=== PATIENT | female | born 1960 | race Caucasian/White ===

== ENCOUNTER 2016-10-16 21:01 | Emergency (ER) | payer OTHER ==
[~2016-10-16] VITALS: Ht 170.2 cm; Wt 135.2 kg
[~2016-10-16 21:01] MED LIST: AZITHROMYCIN250 M1 PO; CEFDINIR300 M1 PO; FER300 PO; L40 PO; LAC PO; LEVAQUIN750 MG; LORAZEPAM1 MG; THERAGRAN-M1 TA4 PO; VITC PO; ZES10 PO; ZOF4; ZYL100 PO
[2016-10-16 22:49] LABS: PLATELET COUNT 315 x10^3mcL (130-400)
[2016-10-16 22:56] LABS: RED CELL DISTRIBUTION WIDTH 34.2 % (11.5-14.5)
[2016-10-16 23:13] LABS: CALCIUM 8.5 mg/dL (8.5-10.1); CARBON DIOXIDE 27.5 mmol/L (21-32); CHLORIDE SERUM 107 mmol/L (98-107); CREATININE SERUM 0.9 mg/dL (0.6-1.0); GFR1 > 60 mL/min; GLUCOSE SERUM 114 mg/dL (74-106); POTASSIUM SERUM 3.8 mmol/L (3.5-5.1); SODIUM SERUM 141 mmol/L (136-145)
[2016-10-16 23:16] LABS: BAND NEUTROPHIL 2 % (0-10); MONOCYTE 2 % (0-7); SEGMENTED NEUTROPHILS 70 % (37-75); rbc morphology (normal/abnorm) ABNORMAL (NORMAL)
[2016-10-16 23:17] LABS: PLATELET MORPHOLOGY PLATELETS NORMAL
[2016-10-16 23:18] LABS: ALKALINE PHOSPHATASE 141 U/L (46-116); ALT/SGPT 26 U/L (14-59); AMYLASE 48 U/L (25-115); AST/SGOT 21 U/L (15-37); BILIRUBIN TOTAL 0.6 mg/dL (0.20-1.00); LIPASE 166 IU/L (73-393); TOTAL PROTEIN, SERUM 7.5 g/dL (6.4-8.2)
[2016-10-16 23:20] LABS: ALBUMIN 3.3 g/dL (3.4-5.0)
[2016-10-16 23:55] VITALS: BP 132/82
== END 2016-10-16 23:55 | disposition home or self-care (01) ==
LOC: ED 21:01
PROVIDERS: Emergency Medicine
DX: K80.50 Calculus of bile duct without cholangitis or cholecystitis without obstruction (principal); M10.9 Gout, unspecified; I10 Essential (primary) hypertension; Z88.1 Allergy status to other antibiotic agents
CPT/HCPCS: J1885

== ENCOUNTER 2016-10-17 02:21 | Inpatient (IN) | payer OTHER ==
[~2016-10-17] VITALS: Ht 170.2 cm; Wt 135.2 kg
[2016-10-17 04:42] VITALS: BP 126/56
[2016-10-17 04:59] LABS: microscopic required? NO
[2016-10-17 05:11] LABS: T3 TOTAL 1.31 ng/mL; UA SPECIFIC GRAVITY >=1.030 (1.005-1.035); urine erythrocyte NEGATIVE (NEGATIVE)
[2016-10-17 05:12] LABS: AMYLASE 52 U/L (25-115); CALCIUM 8.2 mg/dL (8.5-10.1); CARBON DIOXIDE 26.7 mmol/L (21-32); CHLORIDE SERUM 108 mmol/L (98-107); CHOLESTEROL 140 mg/dL (<200); CHOLESTEROL/HDL RATIO 2.9; CREATININE SERUM 0.9 mg/dL (0.6-1.0); GFR1 > 60 mL/min; GLUCOSE SERUM 153 mg/dL (74-106); HDL CHOLESTEROL 48 mg/dL (40-60); LIPASE 175 IU/L (73-393); PHOSPHOROUS 4.3 mg/dL (2.5-4.9); POTASSIUM SERUM 3.8 mmol/L (3.5-5.1); SODIUM SERUM 142 mmol/L (136-145); TRIGLYCERIDES 69 mg/dL (<150)
[2016-10-17 05:18] LABS: AMPHETAMINE QUAL UR NONE DETECTED (NEG <=1000); FREE T4 1.18 ng/dL (0.76-1.46); FREE THYROXINE INDEX 2.4 ug/dL (1.4-4.5); T4(THYROXINE) 8.5 ug/dL (4.7-13.3)
[2016-10-17 09:45] VITALS: BP 107/67
[2016-10-17 13:50] VITALS: BP 98/62
[2016-10-17 17:53] VITALS: BP 98/62
[2016-10-17 21:24] VITALS: BP 126/57
[2016-10-18 06:18] LABS: PLATELET COUNT 262 x10^3mcL (130-400)
[2016-10-18 06:22] LABS: CALCIUM 7.7 mg/dL (8.5-10.1); CARBON DIOXIDE 23.5 mmol/L (21-32); CHLORIDE SERUM 111 mmol/L (98-107); CREATININE SERUM 0.7 mg/dL (0.6-1.0); GFR1 > 60 mL/min; GLUCOSE SERUM 101 mg/dL (74-106); MAGNESIUM 1.8 mg/dL (1.8-2.4); PHOSPHOROUS 3.8 mg/dL (2.5-4.9); SODIUM SERUM 143 mmol/L (136-145)
[2016-10-18 06:31] VITALS: BP 104/53
[2016-10-18 06:39] LABS: BASOPHIL % 0 % (0-2); RED CELL DISTRIBUTION WIDTH 33.8 % (11.5-14.5)
[2016-10-18 06:40] LABS: rbc morphology (normal/abnorm) ABNORMAL (NORMAL)
[2016-10-18 09:00] VITALS: BP 115/67
[2016-10-18 17:50] VITALS: BP 122/72
[2016-10-18 21:25] VITALS: BP 113/59
[2016-10-19 05:47] VITALS: BP 130/72
[2016-10-19 06:21] LABS: CALCIUM 7.8 mg/dL (8.5-10.1); CARBON DIOXIDE 25.5 mmol/L (21-32); CHLORIDE SERUM 112 mmol/L (98-107); CREATININE SERUM 0.8 mg/dL (0.6-1.0); GFR1 > 60 mL/min; GLUCOSE SERUM 95 mg/dL (74-106); POTASSIUM SERUM 3.7 mmol/L (3.5-5.1); SODIUM SERUM 144 mmol/L (136-145)
[2016-10-19 06:34] LABS: BASOPHIL % 0.8 % (0-2); PLATELET COUNT 196 x10^3mcL (130-400)
[2016-10-19 07:09] LABS: RED CELL DISTRIBUTION WIDTH 30.4 % (11.5-14.5)
[2016-10-19 09:17] VITALS: BP 120/58
[2016-10-19 15:37] LABS: TOTAL IRON BINDING CAPACITY 372 ug/dL (250-450)
[2016-10-19 15:41] LABS: IRON 26 ug/dL (50-170)
[2016-10-19 16:00] LABS: RED BLOOD CELLS 4.24 M/mm3 (4.10-5.10)
== END 2016-10-19 16:27 | disposition left against medical advice (07) ==
LOC: ED 02:21 → DU 03:42 → MU 03:42 → DU 04:15 → MU 20:10
PROVIDERS: ADMIT Family Medicine
DX: K80.20 Calculus of gallbladder without cholecystitis without obstruction (principal); E43 Unspecified severe protein-calorie malnutrition; E87.8 Other disorders of electrolyte and fluid balance, not elsewhere classified; I27.2 Other secondary pulmonary hypertension; K76.0 Fatty (change of) liver, not elsewhere classified; Z68.42 Body mass index [BMI] 45.0-49.9, adult; I10 Essential (primary) hypertension; M10.9 Gout, unspecified; D50.9 Iron deficiency anemia, unspecified; E03.9 Hypothyroidism, unspecified; E66.01 Morbid (severe) obesity due to excess calories; Z79.899 Other long term (current) drug therapy; Z82.3 Family history of stroke; Z80.3 Family history of malignant neoplasm of breast; Z82.49 Family history of ischemic heart disease and other diseases of the circulatory system; Z72.89 Other problems related to lifestyle
CPT/HCPCS: 78226; 80307; 83880; 84439; A9537; C9113; J1170; J1885; J2270; J2405; J7030; Q0092

== ENCOUNTER 2016-10-24 00:39 | Emergency (ER) | payer OTHER ==
[2016-10-24 03:00] LABS: BASOPHIL % 0.1 % (0-2); CALCIUM 8.5 mg/dL (8.5-10.1); CARBON DIOXIDE 29.6 mmol/L (21-32); CHLORIDE SERUM 109 mmol/L (98-107); CREATININE SERUM 0.8 mg/dL (0.6-1.0); GFR1 > 60 mL/min; GLUCOSE SERUM 98 mg/dL (74-106); PLATELET COUNT 323 x10^3mcL (130-400); POTASSIUM SERUM 3.2 mmol/L (3.5-5.1); SODIUM SERUM 146 mmol/L (136-145)
[2016-10-24 03:06] LABS: ALBUMIN 3.3 g/dL (3.4-5.0); ALKALINE PHOSPHATASE 120 U/L (46-116); ALT/SGPT 19 U/L (14-59); AMYLASE 38 U/L (25-115); AST/SGOT 21 U/L (15-37); BILIRUBIN TOTAL 0.49 mg/dL (0.20-1.00); LIPASE 95 IU/L (73-393); TOTAL PROTEIN, SERUM 7.3 g/dL (6.4-8.2)
[2016-10-24 03:11] LABS: RED CELL DISTRIBUTION WIDTH 32.9 % (11.5-14.5)
[2016-10-24 03:58] VITALS: BP 111/48
== END 2016-10-24 03:59 | disposition home or self-care (01) ==
LOC: ED 00:39
PROVIDERS: Emergency Medicine
DX: K80.50 Calculus of bile duct without cholangitis or cholecystitis without obstruction (principal); I10 Essential (primary) hypertension; D64.9 Anemia, unspecified; Z79.899 Other long term (current) drug therapy; Z87.01 Personal history of pneumonia (recurrent); Z87.19 Personal history of other diseases of the digestive system
CPT/HCPCS: J1170; Q0162

== ENCOUNTER 2016-10-25 18:12 | Emergency (ER) | payer OTHER ==
[2016-10-25 23:51] VITALS: BP 125/65
== END 2016-10-25 23:51 | disposition home or self-care (01) ==
LOC: ED 18:12
DX: K80.50 Calculus of bile duct without cholangitis or cholecystitis without obstruction (principal); E66.01 Morbid (severe) obesity due to excess calories
CPT/HCPCS: J1170; J1885; Q0162

== ENCOUNTER 2016-10-26 06:23 | Emergency (ER) | payer OTHER ==
[2016-10-26 07:24] LABS: PLATELET COUNT 267 x10^3mcL (130-400)
[2016-10-26 07:35] LABS: CALCIUM 8.4 mg/dL (8.5-10.1); CARBON DIOXIDE 29.2 mmol/L (21-32); CHLORIDE SERUM 108 mmol/L (98-107); CREATININE SERUM 0.7 mg/dL (0.6-1.0); GFR1 > 60 mL/min; GLUCOSE SERUM 112 mg/dL (74-106); POTASSIUM SERUM 4.2 mmol/L (3.5-5.1); SODIUM SERUM 144 mmol/L (136-145)
[2016-10-26 07:40] LABS: ALBUMIN 3.2 g/dL (3.4-5.0); ALKALINE PHOSPHATASE 120 U/L (46-116); ALT/SGPT 17 U/L (14-59); AMYLASE 47 U/L (25-115); AST/SGOT 18 U/L (15-37); BILIRUBIN TOTAL 0.38 mg/dL (0.20-1.00); LIPASE 110 IU/L (73-393); TOTAL PROTEIN, SERUM 7.3 g/dL (6.4-8.2)
[2016-10-26 07:46] LABS: BASOPHIL % 6.8 % (0-2); RED CELL DISTRIBUTION WIDTH 32.3 % (11.5-14.5)
[2016-10-26 07:47] LABS: AMPHETAMINE QUAL UR NONE DETECTED (NEG <=1000)
[2016-10-26 08:13] LABS: target cell (codocyte) 1+; tear drop cell (dacryocyte) 1+
[2016-10-26 08:14] LABS: rbc morphology (normal/abnorm) ABNORMAL (NORMAL)
[2016-10-26 10:09] VITALS: BP 137/97
== END 2016-10-26 10:09 | disposition home or self-care (01) ==
LOC: ED 06:23
PROVIDERS: Emergency Medicine
DX: K80.21 Calculus of gallbladder without cholecystitis with obstruction (principal); R19.7 Diarrhea, unspecified; I10 Essential (primary) hypertension; E66.9 Obesity, unspecified
CPT/HCPCS: 80307; 83880; J2270; J2405; J3490; J7030; Q0092

== ENCOUNTER 2016-10-27 16:04 | Emergency (ER) | payer OTHER ==
[2016-10-27 16:52] LABS: CALCIUM 8.5 mg/dL (8.5-10.1); CARBON DIOXIDE 31.6 mmol/L (21-32); CHLORIDE SERUM 109 mmol/L (98-107); CREATININE SERUM 0.8 mg/dL (0.6-1.0); GFR1 > 60 mL/min; GLUCOSE SERUM 96 mg/dL (74-106); POTASSIUM SERUM 3.8 mmol/L (3.5-5.1); SODIUM SERUM 145 mmol/L (136-145)
[2016-10-27 16:56] LABS: ALBUMIN 3.2 g/dL (3.4-5.0); ALKALINE PHOSPHATASE 121 U/L (46-116); ALT/SGPT 18 U/L (14-59); AMYLASE 51 U/L (25-115); AST/SGOT 19 U/L (15-37); BILIRUBIN TOTAL 0.35 mg/dL (0.20-1.00); LIPASE 156 IU/L (73-393); TOTAL PROTEIN, SERUM 7.4 g/dL (6.4-8.2)
[2016-10-27 16:58] LABS: PLATELET COUNT 294 x10^3mcL (130-400)
[2016-10-27 16:59] LABS: BASOPHIL % 0 % (0-2); RED CELL DISTRIBUTION WIDTH 32.5 % (11.5-14.5)
[2016-10-27 17:39] LABS: rbc morphology (normal/abnorm) ABNORMAL (NORMAL)
[2016-10-27 18:03] VITALS: BP 143/90
== END 2016-10-27 18:03 | disposition home or self-care (01) ==
LOC: ED 16:04
PROVIDERS: Emergency Medicine
DX: K80.70 Calculus of gallbladder and bile duct without cholecystitis without obstruction (principal); I10 Essential (primary) hypertension; M10.9 Gout, unspecified; J18.9 Pneumonia, unspecified organism; Z79.899 Other long term (current) drug therapy
CPT/HCPCS: J1170; J1885; Q0162

== ENCOUNTER 2016-10-31 01:43 | Emergency (ER) | payer OTHER ==
[2016-10-31 04:38] VITALS: BP 157/95
== END 2016-10-31 04:38 | disposition home or self-care (01) ==
LOC: ED 01:43
DX: K80.20 Calculus of gallbladder without cholecystitis without obstruction (principal); R60.0 Localized edema; E66.9 Obesity, unspecified; Z88.1 Allergy status to other antibiotic agents; Z88.6 Allergy status to analgesic agent; Z79.899 Other long term (current) drug therapy
CPT/HCPCS: J1885; Q0162

== ENCOUNTER 2016-11-06 20:39 | Inpatient (IN) | payer OTHER ==
[~2016-11-06] VITALS: Ht 170.2 cm; Wt 97.5 kg
--- NOTE | 2016-11-06 21:15 | NUR ---
PT IN ED FOR ABD PAIN IN UPPER QUADRANTS BILAT, DENIES N/V/D. PT ALSO C/O HEADACHE AND REPORTS "I FEEL LIKE MY HEAD IS GOING TO EXPLODE AND BLOOD IS GOING TO GO EVERYWHERE." PT ALSO STATED "I FEEL LIKE MY EYES ARE GOING TO POP OUT." PER PT'S SISTER, PAIN ONSET BEGAN 1 HOUR BEFORE ED ARRIVAL. PT IS AWAKE AND ALERT; REPORTS PAIN 10/10. RESP ARE EVEN AND UNLABORED. CONNECTED TO FULL CM, O2 2L VIA NC INITIATED. WILL CONTINUE TO MONITOR
--- NOTE | 2016-11-06 21:41 | NUR ---
PT REQUESTED TO VOID; PROVIDED WITH BEDPAN
--- NOTE | 2016-11-06 21:55 | NUR ---
PT MEDICATED PER MD ORDER; PT TOLERATED WELL. RESP EVEN AND UNLABORED, NAD NOTED AT THIS TIME
[2016-11-06 21:56] LABS: microscopic required? NO
[2016-11-06 22:01] LABS: UA SPECIFIC GRAVITY 1.015 (1.005-1.035); urine erythrocyte NEGATIVE (NEGATIVE)
[2016-11-06 22:07] LABS: PLATELET COUNT 273 x10^3mcL (130-400)
[2016-11-06 22:11] LABS: CALCIUM 8.7 mg/dL (8.5-10.1); CARBON DIOXIDE 28.3 mmol/L (21-32); CHLORIDE SERUM 107 mmol/L (98-107); CREATININE SERUM 0.9 mg/dL (0.6-1.0); GFR1 > 60 mL/min; GLUCOSE SERUM 94 mg/dL (74-106); POTASSIUM SERUM 3.6 mmol/L (3.5-5.1); RED CELL DISTRIBUTION WIDTH 29.6 % (11.5-14.5); SODIUM SERUM 141 mmol/L (136-145)
[2016-11-06 22:15] LABS: ALBUMIN 3.4 g/dL (3.4-5.0); ALKALINE PHOSPHATASE 94 U/L (46-116); ALT/SGPT 18 U/L (14-59); AMYLASE 39 U/L (25-115); AST/SGOT 19 U/L (15-37); BILIRUBIN TOTAL 0.38 mg/dL (0.20-1.00); LIPASE 73 IU/L (73-393); TOTAL PROTEIN, SERUM 7.3 g/dL (6.4-8.2)
[2016-11-06 22:19] LABS: BAND NEUTROPHIL 2 % (0-10); BASOPHIL 0 % (0-2); MONOCYTE 4 % (0-7); SEGMENTED NEUTROPHILS 87 % (37-75); rbc morphology (normal/abnorm) ABNORMAL (NORMAL)
--- NOTE | 2016-11-06 22:29 | NUR ---
ICE PACKS PLACED IN PILLOW CASES AND PLACED UNDER PTS AXILLA BILAT
--- NOTE | 2016-11-07 00:06 | NUR ---
PT IN BED; EYES CLOSED BUT EASILY AROUSABLE. RESP EVEN AND UNLABORED, NAD NOTED
--- NOTE | 2016-11-07 00:21 | NUR ---
PT TO CT VIA [facility]
--- NOTE | 2016-11-07 00:30 | NUR ---
PT OKAY PER TO DRINK WATER
--- NOTE | 2016-11-07 01:39 | NUR ---
PT IN BED, RESP EVEN AND UNLABORED. PT GIVEN MORE WATER; OKAY PER MD. PT REPOSITIONED TO POSITION OF COMFORT. NAD NOTED
--- NOTE | 2016-11-07 02:34 | NUR ---
PT GIVEN WATER TO DRINK; RESP EVEN AND UNLABORED, NAD NOTED
[2016-11-07] MEDS ORDERED: NORCO1 TA2 PO (02:49)
[2016-11-07] MEDS ORDERED: FUROSEMIDE40 MG PO (02:54)
[2016-11-07] MEDS ORDERED: ALLOPURINOL100 MG PO (02:54)
[2016-11-07] MEDS ORDERED: THEREMS1 TA1 PO (02:55)
[2016-11-07] MEDS ORDERED: LISINOPRIL10 MG PO (02:55)
[2016-11-07] MEDS ORDERED: OMEPRAZOLE40 M1 PO (02:56)
[2016-11-07] MEDS ORDERED: FERROUS SULFAT325 M2 PO (02:56)
--- NOTE | 2016-11-07 02:58 | NUR ---
REPORT GIVEN TO ADELA TO ASSUME CARE OF PT
--- NOTE | 2016-11-07 03:23 | NUR ---
ANTIBIOTICS AND 2L NS BOLUS ADMINISTERED PER MD ORDER; PT AAO4, RESP EVEN AND UNLABORED, NAD NOTED
--- NOTE | 2016-11-07 04:00 | NUR ---
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 FEBRILE IN ER 101,3 RECHECKED TEMP-98.2 AFTER MEDS AND COOLING MEASURES GIVEN IN ER. 2L NS BOLUS IN ER. IV TO LAC ON BOLUS INFUSING THIS TIME. WITH ADMISSION ORDERS FROM DR SALAZAR AND TO CARRY OUT. KEPT IN COMFORT, ORIENTED TO ROOM AND DEVICES. WILL CONTINUE TO MONITOR. CALL LIGHT WITHIN REACH.
[2016-11-07 04:05] VITALS: BP 86/48
[2016-11-07 04:15] LABS: T3 TOTAL 1.21 ng/mL
[2016-11-07 04:17] LABS: FREE T4 1.23 ng/dL (0.76-1.46); FREE THYROXINE INDEX 2.6 ug/dL (1.4-4.5); T4(THYROXINE) 9.1 ug/dL (4.7-13.3)
[2016-11-07 04:19] LABS: CHOLESTEROL/HDL RATIO 2.1
--- NOTE | 2016-11-07 04:49 | NUR ---
PHOTO OF JACLYN.LEG TAKEN, ADMISSION ORDERS CARRIED OUT. PATIENT RESTING THIS TIME. WILL CONTINUE TO MONITOR.
[2016-11-07 05:50] VITALS: BP 106/67
--- NOTE | 2016-11-07 07:40 | NUR ---
REASSESSMENT DONE. PT COOPERATES WITH CARE. C/O HEADACHE, WILL MEDICTATE PER EMAR. +3 EDEMA TO BLE. ON 2LNC. IV INFUSING WELL TO LAC NS AT 110ML/HR. BED IN LOW POSITION, CALL LIGHT WITHIN REACH. WILL CONTINUE TO MONITOR.
--- NOTE | 2016-11-07 09:40 | NUR ---
PT C/O HEADACHE, MEDICATED PER EMAR. PT TOLERATED WELL. CALL LIGHT WITHIN REACH. WILL CONTINUE TO MONITOR.
[2016-11-07 10:15] VITALS: BP 101/54
--- NOTE | 2016-11-07 11:20 | NUR ---
PT C/O BACK PAIN /10 AND HEADACHE. MEDICATED PER EMAR. PT TOLERATED WELL. CALL LIGHT WITHIN REACH. WILL CONTINUE TO MONITOR.
[2016-11-07 14:40] VITALS: BP 102/54
[2016-11-07 17:10] VITALS: BP 117/89
--- NOTE | 2016-11-07 17:45 | NUR ---
PASSED AFTERNOON MEDS. PT TOLERATED WELL. PT AMBULATED HALLWAYS. PT STATES HEADACHE HAS SUBSIDED. BACK PAIN PRESENT 2/. SLIGHT DECREASE IN BLE SWELLING. CALL LIGHT WITHIN REACH.
--- NOTE | 2016-11-07 20:08 | NUR ---
PT RECIEVED OBESE AAO REG RESP NO SOB,V/S STABLE,MADE COMFORTABLE IN BED,IV INFUSING WELL WITH THE SITE PATENT AND INTACT,ABDO IS SOFT OBESE WITH ACTIVE BOWEL SOUNDS,PT WITH SWOLLEN TO JACLYN LOWER EXTRE BUT MORE REDNESS TO THE LLE PALPABLE PULSES AND WITH MOVEMENTS INTACT,CALL LIGHT MADE CLOSE TO THE PATIENT AND WILL CONTINUE TO MONITOR.
[2016-11-07 20:28] VITALS: BP 100/47
[2016-11-08 06:14] VITALS: BP 116/50
[2016-11-08 06:24] LABS: CALCIUM 8.2 mg/dL (8.5-10.1); CARBON DIOXIDE 29.2 mmol/L (21-32); CHLORIDE SERUM 106 mmol/L (98-107); CREATININE SERUM 0.9 mg/dL (0.6-1.0); GFR1 > 60 mL/min; GLUCOSE SERUM 130 mg/dL (74-106); PHOSPHOROUS 4.3 mg/dL (2.5-4.9); POTASSIUM SERUM 3.7 mmol/L (3.5-5.1); SODIUM SERUM 142 mmol/L (136-145)
[2016-11-08 06:25] LABS: ALBUMIN 2.8 g/dL (3.4-5.0)
--- NOTE | 2016-11-08 06:25 | NUR ---
PT HAD A RESTING NIGHT AND NO CHANGE IN CONDITION,PT NPO THIS TIME,AWARE AND COOPERATIVE,PT C/O OF PAIN PAIN ARCHING IN NATURE AT THE SCALE OF 7/10 AND REQUESTING IV PAIN MEDS,PT WAS MEDICATED WITH MEDS ORDER AND WILL CONTINUE TO MONITOR.
[2016-11-08 07:22] LABS: BASOPHIL % 0.1 % (0-2); PLATELET COUNT 249 x10^3mcL (130-400)
[2016-11-08 09:33] LABS: rbc morphology (normal/abnorm) ABNORMAL (NORMAL)
[2016-11-08 09:34] LABS: target cell (codocyte) 1+
[2016-11-08 09:43] VITALS: BP 110/42
--- NOTE | 2016-11-08 11:47 | NUR ---
PT IS A/O X4 ABLE TO MAKE NEEDS KNOWN. MEDSURG PT. PULSES EQUAL BILATERAL EDEMA TO BLE. LUNGS CTA. BOWEL SOUNDS ACTIVE IN ALL 4 QUADRANTS, NPO. BRP WITH ASSIST, MILD GENERALIZED WEAKNESS. SWELLING AND REDNESS TO BLE. PT C/O PAIN 02/05. IV THE THE LAC PATENT AND INFUSING. CALL LIGHT IN REACH, BED IN LOW POSITION, NON SKID FOOTWEAR ON FEET. PT IS CALM AND COOPERATIVE WITH CARE. WILL CONTINUE TO MONITOR.
--- NOTE | 2016-11-08 12:01 | NUR ---
PT IN TO WORK WITH PATIENT.
--- NOTE | 2016-11-08 12:30 | NUR ---
DR DOUGHERTY PAGED
--- NOTE | 2016-11-08 12:44 | NUR ---
PT UP WALKING AROUND THE ROOM, NO C/O PAIN WILL CONTINUE TO MONITOR.
--- NOTE | 2016-11-08 13:12 | NUR ---
DR DOUGHERTY PAGED
--- NOTE | 2016-11-08 13:38 | NUR ---
P.T. NOTES Pt CLEARED PER NURSING FOR PT EVAL. CONTACT ISOLATION PRECAUTIONS OBSERVED. Pt LIVES AT HOME W/FAMILY AND REPORTS MOSTLY IND WITH ADLs AT HOME. REPORTS THAT SHE USES HER DAD'S [facility] FOR AMBUL[facility]. Pt WAS ADMITTED TO HOSPITAL S/P FEVER, ABD PAIN AND BLE CELLULITIS. S: Pt PRESENTS AWAKE, ALERT AND AGREEABLE FOR PT EVAL. C/O 2/10 BACK PAIN AT THIS TIME. PLEASANT AND TALKATIVE. NO DISTRESS NOTED. O: PLEASE SEE EVAL FOR DETAILS. BED MOB: IND. TRANSFERS: CGA. GT WITH FWW: CGA/MIN A FOR APPROX 45 FT. Pt EDU ON SAFETY, FALL PREVENTION, FWW USE, POSTURAL EDU PROVIDED W/GOOD LEARNING EXPRESSED. SAFELY ASSISTED BTB WITH ALL LINES INTACT, SEATED EOB W/TRAY IN FRONT, CALL LIGHT IN REACH. Pt COOPERATIVE AND VERY APPRECIATIVE OF PT CARE. A: Pt TOLERATED PT WELL. FALL RISK D/T DECLINE IN FUNCTION, MORBID OBESITY. WADDLING GT WITH WBOS, FATIGUES QUICKLY W/LIMITED ENDURANCE. Pt DEMO'S ANTERIOR FLEXED POSTURE W/VC TO CORRECT IN SITTING, STANDING AND DURING GT. Pt WILL BENEFIT FROM FWW FOR INCREASED GAIT STABILITY WELL PT POST ACUTE STAY FOR BALANCE TRAINING/FALL PREVENTION AND GENERALIZED STRENGTHENING. P: POC REVIEWED W/DANCE COACH. PLEASE SEE Pt ONCE DAILY, 6X/WK,1WEEK. EVAL 40' [id number]; [id number]; TUG 13 SEC [id number] Pt INSTRUCTED W/SEATED HEP: HIP FLEXION MARCHES, ANKLE PUMPS/CIRCLES, LAQ, SCAPULAR RETRACTION W/POSTURAL CORRECTION EX. PERFORMED ALL TO TOLERANCE W/GOOD RETURN DEMO'D. EX 9' [phone]
--- NOTE | 2016-11-08 14:02 | NUR ---
CALLED OIL TREATER PHONE SPOKE TO DR DOWELL INFORMED HIM THAT THE PT WANTED AN UPDATE ON WHEN SHE WOULD BE LEAVING.. DR DOWELL STATED THAT HE WOULLD SEND DR JUDD IN TO SEE PT AND GIVE HER AN UPDATE.
--- NOTE | 2016-11-08 15:12 | NUR ---
PT RESTING IN BED NO C/O SOB OR CP AT THIS TIME. WILL CONTINUE TO MONITOR.
[2016-11-08] MEDS ORDERED: LEVAQUIN750 MG PO (15:48)
[2016-11-08] MEDS ORDERED: LAC PO (15:48)
[2016-11-08 16:06] VITALS: BP 110/42
--- NOTE | 2016-11-08 16:48 | NUR ---
DISCHARGE INSTRUCTIONS GIVEN TO PT, PT INFORMED REGARDING HER FOLLOW UP APPT FOR THE 4TH, PT VERBALIZED UNDERSTANDING. IV DC'D INTACT. ALL BELONGINGS TAKEN WITH PT. SCRIPTS IN HAND. BANDS CUT OFF. PT ACCOMPANIED OFF THE FLOOR BY NURSE.
== END 2016-11-08 16:45 | disposition home or self-care (01) | DRG 720 ==
LOC: ED 20:39 → DU 11-07 02:30 → MU 11-07 02:30 → DU 11-07 03:35 → MU 11-07 09:42
PROVIDERS: Emergency Medicine; ADMIT Family Medicine
DX: A41.9 Sepsis, unspecified organism (principal); K80.10 Calculus of gallbladder with chronic cholecystitis without obstruction; I16.0 Hypertensive urgency; D50.9 Iron deficiency anemia, unspecified; K21.9 Gastro-esophageal reflux disease without esophagitis; M10.9 Gout, unspecified; F41.9 Anxiety disorder, unspecified; Z68.33 Body mass index [BMI] 33.0-33.9, adult; K64.9 Unspecified hemorrhoids; I87.2 Venous insufficiency (chronic) (peripheral); K80.70 Calculus of gallbladder and bile duct without cholecystitis without obstruction; Z82.3 Family history of stroke; Z80.3 Family history of malignant neoplasm of breast; Z82.49 Family history of ischemic heart disease and other diseases of the circulatory system
CPT/HCPCS: 83880; 84439; 97110-GP; J0696; J1170; J2270; J2405; J7030; Q0092

== ENCOUNTER 2016-11-09 21:18 | Emergency (ER) | payer OTHER ==
[~2016-11-09 21:18] MED LIST changes: +ALLOPURINOL100 MG PO; +FERROUS SULFAT325 M2 PO; +FUROSEMIDE40 MG PO; +LEVAQUIN750 MG PO; +LISINOPRIL10 MG PO; +NORCO1 TA2 PO; +OMEPRAZOLE40 M1 PO; +THEREMS1 TA1 PO
[2016-11-09 22:13] LABS: BASOPHIL % 0.2 % (0-2); PLATELET COUNT 277 x10^3mcL (130-400)
[2016-11-09 22:16] LABS: CALCIUM 8.6 mg/dL (8.5-10.1); CARBON DIOXIDE 29.3 mmol/L (21-32); CHLORIDE SERUM 107 mmol/L (98-107); CREATININE SERUM 0.9 mg/dL (0.6-1.0); GFR1 > 60 mL/min; GLUCOSE SERUM 98 mg/dL (74-106); POTASSIUM SERUM 3.5 mmol/L (3.5-5.1); SODIUM SERUM 145 mmol/L (136-145)
[2016-11-09 22:20] LABS: ALBUMIN 3.1 g/dL (3.4-5.0); ALKALINE PHOSPHATASE 101 U/L (46-116); ALT/SGPT 19 U/L (14-59); AST/SGOT 19 U/L (15-37); BILIRUBIN TOTAL 0.3 mg/dL (0.20-1.00); TOTAL PROTEIN, SERUM 7.2 g/dL (6.4-8.2)
[2016-11-09 22:30] LABS: RED CELL DISTRIBUTION WIDTH 29.6 % (11.5-14.5)
[2016-11-09 23:25] VITALS: BP 145/106
== END 2016-11-09 23:25 | disposition home or self-care (01) ==
LOC: ED 21:18
PROVIDERS: Emergency Medicine
DX: I87.8 Other specified disorders of veins (principal)
CPT/HCPCS: J0780; J1200; J3010

== ENCOUNTER 2016-11-19 10:38 | Observation (INO) | payer OTHER ==
[~2016-11-19] VITALS: Ht 170.2 cm; Wt 135.8 kg
[2016-11-19 12:10] LABS: BASOPHIL % 0.5 % (0-2); PLATELET COUNT 305 x10^3mcL (130-400)
[2016-11-19 12:11] LABS: RED CELL DISTRIBUTION WIDTH 27.1 % (11.5-14.5)
[2016-11-19 12:25] LABS: ALKALINE PHOSPHATASE 87 U/L (46-116); ALT/SGPT 14 U/L (14-59); AST/SGOT 15 U/L (15-37); BILIRUBIN TOTAL 0.25 mg/dL (0.20-1.00); CHLORIDE SERUM 108 mmol/L (98-107); CREATININE SERUM 0.7 mg/dL (0.6-1.0); GFR1 > 60 mL/min; GLUCOSE SERUM 119 mg/dL (74-106); SODIUM SERUM 143 mmol/L (136-145); TOTAL PROTEIN, SERUM 6.8 g/dL (6.4-8.2)
[2016-11-19 12:36] LABS: ALBUMIN 3.1 g/dL (3.4-5.0)
[2016-11-19 14:35] LABS: MAGNESIUM 1.8 mg/dL (1.8-2.4); PHOSPHOROUS 3.9 mg/dL (2.5-4.9)
[2016-11-19 14:36] LABS: T3 TOTAL 1.14 ng/mL
[2016-11-19 14:38] LABS: CHOLESTEROL/HDL RATIO 2.2
[2016-11-19 14:41] VITALS: BP 150/51
[2016-11-19 14:53] VITALS: Ht 170.2 cm; Wt 135.8 kg
[2016-11-19 15:17] LABS: microscopic required? NO
[2016-11-19 15:36] LABS: UA SPECIFIC GRAVITY 1.015 (1.005-1.035); urine erythrocyte NEGATIVE (NEGATIVE)
[2016-11-19 15:48] LABS: AMPHETAMINE QUAL UR NONE DETECTED (NEG <=1000)
[2016-11-19 15:55] LABS: FREE T4 0.88 ng/dL (0.76-1.46); FREE THYROXINE INDEX 2.1 ug/dL (1.4-4.5); T4(THYROXINE) 6.9 ug/dL (4.7-13.3)
[2016-11-19 17:43] VITALS: BP 120/61
[2016-11-19 19:27] LABS: BASOPHIL % 0.6 % (0-2); PLATELET COUNT 314 x10^3mcL (130-400)
[2016-11-19 19:34] LABS: RED CELL DISTRIBUTION WIDTH 27.9 % (11.5-14.5)
[2016-11-19 20:22] LABS: rbc morphology (normal/abnorm) ABNORMAL (NORMAL)
[2016-11-19 21:32] VITALS: BP 108/61
[2016-11-20 05:56] VITALS: BP 119/69
[2016-11-20 10:00] VITALS: BP 110/45
[2016-11-20] MEDS ORDERED: NATURAL IRON65 MG PO (12:21)
[2016-11-20] MEDS ORDERED: LEADER C1 TAB PO (12:24)
[2016-11-20] MEDS ORDERED: MECLIZINE HYD12.5 MG PO (12:25)
[2016-11-20] MEDS ORDERED: ULTRAM50 MG PO (12:59)
[2016-11-20 13:21] VITALS: BP 110/45
[2016-11-20] MEDS ORDERED: BACTROBAN21 (16:57)
[2016-11-20] MEDS ORDERED: HIB480 TP (16:57)
== END 2016-11-20 17:00 | disposition home or self-care (01) | DRG 254 ==
LOC: ED 10:38 → DU 13:25 → MU 13:25 → DU 14:56 → MU 11-20 10:03
PROVIDERS: Emergency Medicine; ADMIT Family Medicine
DX: K92.1 Melena (principal); E44.0 Moderate protein-calorie malnutrition; F11.20 Opioid dependence, uncomplicated; Z68.42 Body mass index [BMI] 45.0-49.9, adult; I10 Essential (primary) hypertension; F41.1 Generalized anxiety disorder; K21.9 Gastro-esophageal reflux disease without esophagitis; D50.9 Iron deficiency anemia, unspecified; I87.2 Venous insufficiency (chronic) (peripheral); K64.8 Other hemorrhoids; E66.01 Morbid (severe) obesity due to excess calories; Z22.322 Carrier or suspected carrier of Methicillin resistant Staphylococcus aureus
CPT/HCPCS: 80307; 83880; 84439; G0378; J2270; J2405; J7030; J8597; Q0092

== ENCOUNTER 2016-12-19 10:44 | Inpatient (IN) | payer OTHER ==
[~2016-12-19] VITALS: Ht 170.2 cm; Wt 139.8 kg
[~2016-12-19 10:44] MED LIST changes: +BACTROBAN21; +HIB480 TP; +LEADER C1 TAB PO; +MECLIZINE HYD12.5 MG PO; +NATURAL IRON65 MG PO; +ULTRAM50 MG PO
[2016-12-19 12:23] LABS: PLATELET COUNT 389 x10^3mcL (130-400)
[2016-12-19 12:27] LABS: RED CELL DISTRIBUTION WIDTH 23.1 % (11.5-14.5)
[2016-12-19 12:35] LABS: CALCIUM 8.7 mg/dL (8.5-10.1); CARBON DIOXIDE 29.5 mmol/L (21-32); CHLORIDE SERUM 99 mmol/L (98-107); CREATININE SERUM 0.9 mg/dL (0.6-1.0); GFR1 > 60 mL/min; GLUCOSE SERUM 117 mg/dL (74-106); POTASSIUM SERUM 4.2 mmol/L (3.5-5.1); SODIUM SERUM 141 mmol/L (136-145)
[2016-12-19 12:39] LABS: ALBUMIN 3.6 g/dL (3.4-5.0); ALKALINE PHOSPHATASE 113 U/L (46-116); ALT/SGPT 16 U/L (14-59); AST/SGOT 17 U/L (15-37); BILIRUBIN TOTAL 0.3 mg/dL (0.20-1.00)
[2016-12-19 12:40] LABS: TOTAL PROTEIN, SERUM 8.3 g/dL (6.4-8.2)
[2016-12-19 12:44] LABS: BAND NEUTROPHIL 9 % (0-10); BASOPHIL 0 % (0-2); MONOCYTE 4 % (0-7); SEGMENTED NEUTROPHILS 75 % (37-75)
[2016-12-19 12:45] LABS: PLATELET MORPHOLOGY PLATELETS NORMAL; rbc morphology (normal/abnorm) ABNORMAL (NORMAL)
[2016-12-19 15:30] LABS: UA SPECIFIC GRAVITY 1.015 (1.005-1.035); microscopic required? YES; urine erythrocyte TRACE (NEGATIVE)
[2016-12-19 15:55] LABS: AMPHETAMINE QUAL UR NONE DETECTED (NEG <=1000)
[2016-12-19] MEDS ORDERED: NOR10T (16:44)
[2016-12-19 18:03] VITALS: BP 88/51
[2016-12-19 18:16] LABS: MAGNESIUM 1.6 mg/dL (1.8-2.4); PHOSPHOROUS 3.8 mg/dL (2.5-4.9)
[2016-12-19 18:18] LABS: CHOLESTEROL/HDL RATIO 2.2
[2016-12-19 18:24] LABS: T3 TOTAL 1.19 ng/mL
[2016-12-19 18:27] LABS: FREE T4 0.99 ng/dL (0.76-1.46); FREE THYROXINE INDEX 2.6 ug/dL (1.4-4.5); T4(THYROXINE) 8.9 ug/dL (4.7-13.3)
[2016-12-19 19:00] VITALS: BP 99/58
[2016-12-19 22:25] VITALS: Ht 170.2 cm; Wt 139.8 kg
[2016-12-20] VITALS (7 sets, daily range): BP systolic 101–150; BP diastolic 50–75
[2016-12-20 05:45] LABS: BASOPHIL % 0.1 % (0-2); PLATELET COUNT 288 x10^3mcL (130-400)
[2016-12-20 05:53] LABS: RED CELL DISTRIBUTION WIDTH 22.8 % (11.5-14.5)
[2016-12-20 05:57] LABS: CALCIUM 7.7 mg/dL (8.5-10.1); CARBON DIOXIDE 28.1 mmol/L (21-32); CHLORIDE SERUM 106 mmol/L (98-107); GFR1 > 60 mL/min; GLUCOSE SERUM 109 mg/dL (74-106); MAGNESIUM 1.8 mg/dL (1.8-2.4); PHOSPHOROUS 4.3 mg/dL (2.5-4.9); POTASSIUM SERUM 3.9 mmol/L (3.5-5.1); SODIUM SERUM 142 mmol/L (136-145)
[2016-12-21 06:02] VITALS: BP 121/69
[2016-12-21 06:12] LABS: CALCIUM 8.3 mg/dL (8.5-10.1); CARBON DIOXIDE 27.1 mmol/L (21-32); CHLORIDE SERUM 105 mmol/L (98-107); GFR1 > 60 mL/min; GLUCOSE SERUM 138 mg/dL (74-106); PHOSPHOROUS 3.1 mg/dL (2.5-4.9); POTASSIUM SERUM 3.6 mmol/L (3.5-5.1); SODIUM SERUM 141 mmol/L (136-145)
[2016-12-21 06:20] LABS: PLATELET COUNT 259 x10^3mcL (130-400)
[2016-12-21 06:58] LABS: RED CELL DISTRIBUTION WIDTH 23.4 % (11.5-14.5)
[2016-12-21 07:25] LABS: BAND NEUTROPHIL 7 % (0-10); MONOCYTE 4 % (0-7); SEGMENTED NEUTROPHILS 84 % (37-75); ovalocyte/elliptocyte 1+; rbc morphology (normal/abnorm) ABNORMAL (NORMAL)
[2016-12-21 10:00] VITALS: BP 138/69
[2016-12-21 14:01] VITALS: BP 99/58
[2016-12-21 16:34] VITALS: BP 105/59
[2016-12-21 21:35] VITALS: BP 130/67
[2016-12-22 05:48] VITALS: BP 134/76
[2016-12-22 06:24] LABS: BASOPHIL % 0.3 % (0-2); PLATELET COUNT 231 x10^3mcL (130-400)
[2016-12-22 06:43] LABS: RED CELL DISTRIBUTION WIDTH 23.1 % (11.5-14.5)
[2016-12-22 06:44] LABS: rbc morphology (normal/abnorm) ABNORMAL (NORMAL)
[2016-12-22 06:45] LABS: ovalocyte/elliptocyte 1+
[2016-12-22 06:53] LABS: CALCIUM 8.2 mg/dL (8.5-10.1); CARBON DIOXIDE 28.7 mmol/L (21-32); CHLORIDE SERUM 104 mmol/L (98-107); CREATININE SERUM 0.9 mg/dL (0.6-1.0); GFR1 > 60 mL/min; GLUCOSE SERUM 140 mg/dL (74-106); POTASSIUM SERUM 3.9 mmol/L (3.5-5.1); SODIUM SERUM 139 mmol/L (136-145)
[2016-12-22 10:09] VITALS: BP 145/83
[2016-12-22 13:52] VITALS: BP 107/49
[2016-12-22 18:28] VITALS: BP 118/48
[2016-12-22] MEDS ORDERED: PHARMASSURE VI500 MG PO (22:46)
[2016-12-22] MEDS ORDERED: FERG PO (22:47)
[2016-12-22] MEDS ORDERED: HIB480 TP (22:48)
[2016-12-22] MEDS ORDERED: MUPIROCIN2% TOP (22:49)
[2016-12-22] MEDS ORDERED: LAC PO (22:54)
[2016-12-22] MEDS ORDERED: PENICILLIN VK500 MG PO (22:56)
[2016-12-22] MEDS ORDERED: CLINDAMYCIN HY150 M1 PO (23:00)
[2016-12-23 06:19] LABS: BASOPHIL % 0.9 % (0-2); PLATELET COUNT 284 x10^3mcL (130-400)
[2016-12-23 06:37] VITALS: BP 110/57
[2016-12-23 06:39] LABS: CALCIUM 8.3 mg/dL (8.5-10.1); CARBON DIOXIDE 29.2 mmol/L (21-32); CHLORIDE SERUM 106 mmol/L (98-107); CREATININE SERUM 0.9 mg/dL (0.6-1.0); GFR1 > 60 mL/min; GLUCOSE SERUM 137 mg/dL (74-106); POTASSIUM SERUM 3.7 mmol/L (3.5-5.1); SODIUM SERUM 141 mmol/L (136-145)
[2016-12-23 07:17] LABS: RED CELL DISTRIBUTION WIDTH 23.9 % (11.5-14.5)
[2016-12-23 07:18] LABS: ovalocyte/elliptocyte 1+; rbc morphology (normal/abnorm) ABNORMAL (NORMAL)
[2016-12-23] MEDS ORDERED: NOR10T PO (08:52)
[2016-12-23] MEDS ORDERED: ROBAXIN-750750 MG PO (08:54)
[2016-12-23 09:10] VITALS: BP 154/54
[2016-12-23 11:30] VITALS: BP 133/66
[2016-12-23] MEDS ORDERED: LASIX20 MG PO (11:55)
== END 2016-12-23 12:07 | disposition home or self-care (01) | DRG 720 ==
LOC: ED 10:44 → DU 16:03 → IC 16:03 → DU 17:44 → IC 19:03 → DU 12-20 15:24 → MU 12-22 10:50
PROVIDERS: Emergency Medicine; Family Medicine; ADMIT Family Medicine
DX: A41.9 Sepsis, unspecified organism (principal); E43 Unspecified severe protein-calorie malnutrition; I95.9 Hypotension, unspecified; I27.2 Other secondary pulmonary hypertension; I95.2 Hypotension due to drugs; Z68.41 Body mass index [BMI] 40.0-44.9, adult; I07.1 Rheumatic tricuspid insufficiency; L03.116 Cellulitis of left lower limb; I89.0 Lymphedema, not elsewhere classified; E66.01 Morbid (severe) obesity due to excess calories; K44.9 Diaphragmatic hernia without obstruction or gangrene; E83.42 Hypomagnesemia; I73.9 Peripheral vascular disease, unspecified; K80.20 Calculus of gallbladder without cholecystitis without obstruction; K57.30 Diverticulosis of large intestine without perforation or abscess without bleeding; T40.4X5A Adverse effect of other synthetic narcotics, initial encounter; Y92.238 Other place in hospital as the place of occurrence of the external cause; M47.9 Spondylosis, unspecified; R59.9 Enlarged lymph nodes, unspecified; Z82.3 Family history of stroke; Z82.49 Family history of ischemic heart disease and other diseases of the circulatory system; Z80.3 Family history of malignant neoplasm of breast
CPT/HCPCS: 83880; 84439; 97116-GP; 97530-GP; C9113; J0295; J0696; J1630; J1644; J1956; J2270; J2405; J2540; J3010; J3475; J3490; J7030; Q0092

== ENCOUNTER 2017-03-22 13:09 | Emergency (ER) | payer OTHER ==
[~2017-03-22 13:09] MED LIST changes: +CLINDAMYCIN HY150 M1 PO; +FERG PO; +LASIX20 MG PO; +MUPIROCIN2% TOP; +NOR10T; +NOR10T PO; +PENICILLIN VK500 MG PO; +PHARMASSURE VI500 MG PO; +ROBAXIN-750750 MG PO
[2017-03-22 17:57] LABS: BASOPHIL % 0.1 % (0-2); PLATELET COUNT 315 x10^3mcL (130-400)
[2017-03-22 18:01] LABS: RED CELL DISTRIBUTION WIDTH 20.3 % (11.5-14.5)
[2017-03-22 18:08] LABS: CALCIUM 8.7 mg/dL (8.5-10.1); CARBON DIOXIDE 27.1 mmol/L (21-32); CHLORIDE SERUM 105 mmol/L (98-107); CREATININE SERUM 0.8 mg/dL (0.6-1.0); GFR1 > 60 mL/min; GLUCOSE SERUM 99 mg/dL (74-106); POTASSIUM SERUM 3.8 mmol/L (3.5-5.1); SODIUM SERUM 141 mmol/L (136-145)
[2017-03-22 18:11] LABS: rbc morphology (normal/abnorm) ABNORMAL (NORMAL)
[2017-03-22 18:14] LABS: ALBUMIN 3.4 g/dL (3.4-5.0); ALKALINE PHOSPHATASE 98 U/L (46-116); ALT/SGPT 17 U/L (14-59); AST/SGOT 17 U/L (15-37); LIPASE 74 IU/L (73-393); TOTAL PROTEIN, SERUM 8.1 g/dL (6.4-8.2)
[2017-03-22 20:19] VITALS: BP 153/82
[2017-03-23] MEDS ORDERED: LASIX40 MG PO (07:29)
== END 2017-03-22 20:19 | disposition home or self-care (01) ==
LOC: ED 13:09
PROVIDERS: Emergency Medicine
DX: K80.20 Calculus of gallbladder without cholecystitis without obstruction (principal); I10 Essential (primary) hypertension; Z88.6 Allergy status to analgesic agent; Z87.19 Personal history of other diseases of the digestive system
CPT/HCPCS: J2270; J2405; J7030; Q0092

== ENCOUNTER 2017-03-23 05:19 | Inpatient (IN) | payer OTHER ==
[~2017-03-23] VITALS: Ht 167.6 cm; Wt 126.0 kg
[2017-03-23 07:11] LABS: BASOPHIL % 0.4 % (0-2); PLATELET COUNT 261 x10^3mcL (130-400)
[2017-03-23 07:16] LABS: CALCIUM 7.9 mg/dL (8.5-10.1); CARBON DIOXIDE 27.1 mmol/L (21-32); CHLORIDE SERUM 103 mmol/L (98-107); CREATININE SERUM 0.8 mg/dL (0.6-1.0); GFR1 > 60 mL/min; GLUCOSE SERUM 125 mg/dL (74-106); POTASSIUM SERUM 3.2 mmol/L (3.5-5.1); SODIUM SERUM 136 mmol/L (136-145)
[2017-03-23 07:22] LABS: ALKALINE PHOSPHATASE 79 U/L (46-116); ALT/SGPT 14 U/L (14-59); AMYLASE 35 U/L (25-115); AST/SGOT 14 U/L (15-37); BILIRUBIN TOTAL 0.4 mg/dL (0.20-1.00); LIPASE 73 IU/L (73-393); TOTAL PROTEIN, SERUM 7.1 g/dL (6.4-8.2)
[2017-03-23 07:24] LABS: ALBUMIN 2.9 g/dL (3.4-5.0)
[2017-03-23] MEDS ORDERED: LASIX40 MG PO (07:29)
[2017-03-23 07:30] LABS: RED CELL DISTRIBUTION WIDTH 20.1 % (11.5-14.5)
[2017-03-23 09:33] LABS: CHOLESTEROL/HDL RATIO 2.2; MAGNESIUM 1.8 mg/dL (1.8-2.4); PHOSPHOROUS 3.6 mg/dL (2.5-4.9)
[2017-03-23 09:42] LABS: T3 TOTAL 0.99 ng/mL
[2017-03-23 09:55] LABS: FREE T4 1.04 ng/dL (0.76-1.46); FREE THYROXINE INDEX 2.7 ug/dL (1.4-4.5)
[2017-03-23 14:22] VITALS: BP 122/76
[2017-03-23 21:45] VITALS: BP 102/50
[2017-03-24 05:21] VITALS: BP 144/83
[2017-03-24 07:54] LABS: CALCIUM 8.3 mg/dL (8.5-10.1); CARBON DIOXIDE 27.8 mmol/L (21-32); CHLORIDE SERUM 109 mmol/L (98-107); CREATININE SERUM 0.8 mg/dL (0.6-1.0); GFR1 > 60 mL/min; GLUCOSE SERUM 107 mg/dL (74-106); MAGNESIUM 2.1 mg/dL (1.8-2.4); PHOSPHOROUS 4.1 mg/dL (2.5-4.9); POTASSIUM SERUM 4.3 mmol/L (3.5-5.1); SODIUM SERUM 143 mmol/L (136-145)
[2017-03-24 08:15] LABS: BASOPHIL % 0.4 % (0-2); PLATELET COUNT 237 x10^3mcL (130-400)
[2017-03-24 08:16] LABS: RED CELL DISTRIBUTION WIDTH 19.9 % (11.5-14.5)
[2017-03-24 21:01] VITALS: BP 148/60
[2017-03-25 05:13] VITALS: BP 153/60
[2017-03-25 05:32] LABS: BASOPHIL % 0.5 % (0-2); PLATELET COUNT 275 x10^3mcL (130-400)
[2017-03-25 05:40] LABS: RED CELL DISTRIBUTION WIDTH 19.8 % (11.5-14.5)
[2017-03-25 05:51] LABS: CALCIUM 8.5 mg/dL (8.5-10.1); CARBON DIOXIDE 31.2 mmol/L (21-32); CHLORIDE SERUM 107 mmol/L (98-107); CREATININE SERUM 0.7 mg/dL (0.6-1.0); GFR1 > 60 mL/min; GLUCOSE SERUM 101 mg/dL (74-106); MAGNESIUM 1.9 mg/dL (1.8-2.4); PHOSPHOROUS 4.1 mg/dL (2.5-4.9); SODIUM SERUM 144 mmol/L (136-145)
[2017-03-25 17:50] VITALS: BP 106/59
[2017-03-25 20:28] VITALS: BP 127/54
[2017-03-26 05:41] VITALS: BP 150/56
[2017-03-26 06:05] LABS: BASOPHIL % 0.4 % (0-2); PLATELET COUNT 260 x10^3mcL (130-400)
[2017-03-26 06:17] LABS: CALCIUM 8.2 mg/dL (8.5-10.1); CARBON DIOXIDE 30.4 mmol/L (21-32); CHLORIDE SERUM 107 mmol/L (98-107); CREATININE SERUM 0.7 mg/dL (0.6-1.0); GFR1 > 60 mL/min; GLUCOSE SERUM 93 mg/dL (74-106); MAGNESIUM 1.7 mg/dL (1.8-2.4); PHOSPHOROUS 3.5 mg/dL (2.5-4.9); POTASSIUM SERUM 3.5 mmol/L (3.5-5.1); SODIUM SERUM 140 mmol/L (136-145)
[2017-03-26 06:50] LABS: microscopic required? NO
[2017-03-26 07:05] LABS: UA SPECIFIC GRAVITY 1.015 (1.005-1.035); urine erythrocyte NEGATIVE (NEGATIVE)
[2017-03-26 07:10] LABS: rbc morphology (normal/abnorm) ABNORMAL (NORMAL)
[2017-03-26 07:19] LABS: AMPHETAMINE QUAL UR NONE DETECTED (NEG <=1000)
[2017-03-26 08:29] VITALS: BP 142/68
[2017-03-26 13:15] VITALS: BP 115/50
[2017-03-26 17:35] VITALS: BP 148/68
[2017-03-26 22:02] VITALS: BP 120/49
[2017-03-27 06:06] VITALS: BP 129/53
[2017-03-27 06:17] LABS: BASOPHIL % 0.3 % (0-2); PLATELET COUNT 266 x10^3mcL (130-400)
[2017-03-27 06:41] LABS: RED CELL DISTRIBUTION WIDTH 19.8 % (11.5-14.5)
[2017-03-27 09:35] VITALS: BP 116/46
[2017-03-27 17:19] VITALS: BP 130/53
[2017-03-27 22:03] VITALS: BP 131/76
[2017-03-28 06:08] VITALS: BP 158/77
[2017-03-28 06:47] LABS: CALCIUM 8.1 mg/dL (8.5-10.1); CARBON DIOXIDE 29.8 mmol/L (21-32); CHLORIDE SERUM 107 mmol/L (98-107); CREATININE SERUM 0.7 mg/dL (0.6-1.0); GFR1 > 60 mL/min; GLUCOSE SERUM 94 mg/dL (74-106); POTASSIUM SERUM 3.4 mmol/L (3.5-5.1); SODIUM SERUM 144 mmol/L (136-145)
[2017-03-28 08:21] VITALS: BP 148/75
[2017-03-28] MEDS ORDERED: LIPI20 PO (09:41)
[2017-03-28] MEDS ORDERED: NOR10T PO (09:46)
[2017-03-28] MEDS ORDERED: COL100 PO (09:49)
[2017-03-28] MEDS ORDERED: ZOFRAN8 MG PO (09:50)
[2017-03-28] MEDS ORDERED: KLOR-CON M2020 MEQ PO (10:39)
[2017-03-28 11:52] VITALS: BP 148/75
[2017-03-28] MEDS ORDERED: PRI20 PO (12:07)
== END 2017-03-28 16:35 | disposition home or self-care (01) | DRG 263 ==
LOC: ED 05:19 → DU 06:51 → MU 06:51 → DU 13:23 → MU 03-24 09:10
PROVIDERS: Emergency Medicine; Family Medicine; ADMIT Family Medicine
PROC: 0FT44ZZ Resection of Gallbladder, Percutaneous Endoscopic Approach (ICD-10-PCS; principal; 2017-03-23)
DX: K80.00 Calculus of gallbladder with acute cholecystitis without obstruction (principal); E43 Unspecified severe protein-calorie malnutrition; D68.69 Other thrombophilia; Z68.41 Body mass index [BMI] 40.0-44.9, adult; E83.42 Hypomagnesemia; E87.8 Other disorders of electrolyte and fluid balance, not elsewhere classified; E83.51 Hypocalcemia; E87.6 Hypokalemia; M10.9 Gout, unspecified; D50.9 Iron deficiency anemia, unspecified; K21.9 Gastro-esophageal reflux disease without esophagitis; R73.03 Prediabetes; F41.1 Generalized anxiety disorder; K57.30 Diverticulosis of large intestine without perforation or abscess without bleeding; I70.209 Unspecified atherosclerosis of native arteries of extremities, unspecified extremity; Z88.8 Allergy status to other drugs, medicaments and biological substances; I73.9 Peripheral vascular disease, unspecified; E66.01 Morbid (severe) obesity due to excess calories; Z82.3 Family history of stroke; Z80.3 Family history of malignant neoplasm of breast; Z82.49 Family history of ischemic heart disease and other diseases of the circulatory system
CPT/HCPCS: 82962; 83880; 84439; 94150; J0330; J0690; J1170; J2270; J2405; J2704; J2710; J3010; J3480; J3490; J7030; J7120; Q0092; Q9967

== ENCOUNTER 2017-03-29 19:11 | Emergency (ER) | payer OTHER ==
[~2017-03-29 19:11] MED LIST changes: +COL100 PO; +KLOR-CON M2020 MEQ PO; +LASIX40 MG PO; +LIPI20 PO; +PRI20 PO; +ZOFRAN8 MG PO
[2017-03-29 21:39] LABS: PLATELET COUNT 300 x10^3mcL (130-400)
[2017-03-29 21:51] LABS: BASOPHIL % 2.9 % (0-2); RED CELL DISTRIBUTION WIDTH 20.1 % (11.5-14.5)
[2017-03-29 21:52] LABS: CALCIUM 8.6 mg/dL (8.5-10.1); CHLORIDE SERUM 105 mmol/L (98-107); CREATININE SERUM 0.7 mg/dL (0.6-1.0); GFR1 > 60 mL/min; GLUCOSE SERUM 100 mg/dL (74-106); POTASSIUM SERUM 3.9 mmol/L (3.5-5.1); SODIUM SERUM 141 mmol/L (136-145)
[2017-03-29 21:56] LABS: ALKALINE PHOSPHATASE 82 U/L (46-116); ALT/SGPT 29 U/L (14-59); AMYLASE 29 U/L (25-115); AST/SGOT 24 U/L (15-37); BILIRUBIN TOTAL 0.48 mg/dL (0.20-1.00); LIPASE 92 IU/L (73-393); TOTAL PROTEIN, SERUM 7.3 g/dL (6.4-8.2)
[2017-03-29 21:57] LABS: ALBUMIN 2.9 g/dL (3.4-5.0)
[2017-03-29 22:06] LABS: ovalocyte/elliptocyte 1+; rbc morphology (normal/abnorm) ABNORMAL (NORMAL)
[2017-03-30 01:49] VITALS: BP 129/70
== END 2017-03-30 01:49 | disposition home or self-care (01) ==
LOC: ED 19:11
PROVIDERS: Emergency Medicine
DX: R10.9 Unspecified abdominal pain (principal); I10 Essential (primary) hypertension; Z88.6 Allergy status to analgesic agent
CPT/HCPCS: 36415

== ENCOUNTER 2017-04-16 16:15 | Emergency (ER) | payer OTHER ==
[~2017-04-16] VITALS: Ht 170.2 cm; Wt 139.2 kg
[2017-04-16 17:01] VITALS: BP 160/89
== END 2017-04-16 19:49 | disposition home or self-care (01) ==
LOC: ED 16:15
DX: Z48.02 Encounter for removal of sutures (principal); T81.4XXA Infection following a procedure, initial encounter; I10 Essential (primary) hypertension; Z88.6 Allergy status to analgesic agent; Z86.2 Personal history of diseases of the blood and blood-forming organs and certain disorders involving the immune mechanism; Z90.89 Acquired absence of other organs
CPT/HCPCS: J0696

== ENCOUNTER 2017-05-08 21:17 | Inpatient (IN) | payer OTHER ==
[~2017-05-08] VITALS: Ht 170.2 cm; Wt 142.6 kg
[2017-05-08 22:54] LABS: BASOPHIL % 0.5 % (0-2); PLATELET COUNT 246 x10^3mcL (130-400)
[2017-05-08 22:57] LABS: RED CELL DISTRIBUTION WIDTH 17.9 % (11.5-14.5)
[2017-05-08 23:00] LABS: CALCIUM 8.4 mg/dL (8.5-10.1); CARBON DIOXIDE 28.9 mmol/L (21-32); CHLORIDE SERUM 105 mmol/L (98-107); GFR1 > 60 mL/min; GLUCOSE SERUM 133 mg/dL (74-106); POTASSIUM SERUM 3.2 mmol/L (3.5-5.1); SODIUM SERUM 142 mmol/L (136-145)
[2017-05-08 23:05] LABS: ALBUMIN 3.5 g/dL (3.4-5.0); ALKALINE PHOSPHATASE 101 U/L (46-116); ALT/SGPT 19 U/L (14-59); AST/SGOT 31 U/L (15-37); BILIRUBIN TOTAL 0.33 mg/dL (0.20-1.00); TOTAL PROTEIN, SERUM 8.1 g/dL (6.4-8.2)
[2017-05-09 02:18] LABS: UA SPECIFIC GRAVITY 1.015 (1.005-1.035); microscopic required? YES; urine erythrocyte TRACE (NEGATIVE)
[2017-05-09 04:06] VITALS: Ht 170.2 cm; Wt 142.6 kg
[2017-05-09 04:10] LABS: MAGNESIUM 1.6 mg/dL (1.8-2.4); PHOSPHOROUS 1.8 mg/dL (2.5-4.9)
[2017-05-09 05:56] VITALS: BP 85/46
[2017-05-09 06:37] LABS: PLATELET COUNT 236 x10^3mcL (130-400)
[2017-05-09 06:49] LABS: CALCIUM 7.8 mg/dL (8.5-10.1); CARBON DIOXIDE 25.2 mmol/L (21-32); CREATININE SERUM 1.4 mg/dL (0.6-1.0)
[2017-05-09 06:56] LABS: POTASSIUM SERUM 2.9 mmol/L (3.5-5.1)
[2017-05-09 07:16] LABS: MAGNESIUM 1.4 mg/dL (1.8-2.4); PHOSPHOROUS 2.3 mg/dL (2.5-4.9)
[2017-05-09 09:20] VITALS: BP 88/57
[2017-05-09 12:21] LABS: RED CELL DISTRIBUTION WIDTH 17.6 % (11.5-14.5)
[2017-05-09 13:44] VITALS: BP 91/37
[2017-05-09 13:46] LABS: BAND NEUTROPHIL 17 % (0-10); BASOPHIL 0 % (0-2); MONOCYTE 7 % (0-7); SEGMENTED NEUTROPHILS 74 % (37-75); rbc morphology (normal/abnorm) ABNORMAL (NORMAL)
[2017-05-09 13:47] LABS: PLATELET MORPHOLOGY PLATELETS DECREASED
[2017-05-09 17:40] VITALS: BP 105/70
[2017-05-09 20:51] VITALS: BP 131/76
[2017-05-10 05:45] VITALS: BP 151/76
[2017-05-10 09:20] VITALS: BP 96/40
[2017-05-10 10:31] LABS: PLATELET COUNT 161 x10^3mcL (130-400)
[2017-05-10 10:34] LABS: RED CELL DISTRIBUTION WIDTH 18.1 % (11.5-14.5)
[2017-05-10 11:03] LABS: BAND NEUTROPHIL 24 % (0-10); MONOCYTE 3 % (0-7); SEGMENTED NEUTROPHILS 60 % (37-75)
[2017-05-10 11:04] LABS: rbc morphology (normal/abnorm) ABNORMAL (NORMAL)
[2017-05-10 11:07] LABS: CARBON DIOXIDE 23.2 mmol/L (21-32); CREATININE SERUM 1.3 mg/dL (0.6-1.0); MAGNESIUM 1.9 mg/dL (1.8-2.4); PHOSPHOROUS 3.2 mg/dL (2.5-4.9); POTASSIUM SERUM 4.3 mmol/L (3.5-5.1)
[2017-05-10 17:04] VITALS: BP 110/46
[2017-05-10 21:11] VITALS: BP 118/55
[2017-05-11 05:48] VITALS: BP 131/79
[2017-05-11 06:15] LABS: CALCIUM 7.8 mg/dL (8.5-10.1); CARBON DIOXIDE 27.2 mmol/L (21-32); CREATININE SERUM 1.1 mg/dL (0.6-1.0); POTASSIUM SERUM 4.1 mmol/L (3.5-5.1)
[2017-05-11 07:03] LABS: BASOPHIL % 0.1 % (0-2); PLATELET COUNT 189 x10^3mcL (130-400); RED CELL DISTRIBUTION WIDTH 18.5 % (11.5-14.5)
[2017-05-11 08:13] VITALS: BP 120/64
[2017-05-11 12:15] VITALS: BP 116/58
[2017-05-11 17:44] VITALS: BP 142/71
[2017-05-12 01:07] VITALS: BP 144/75
[2017-05-12 06:15] VITALS: BP 108/61
[2017-05-12 07:33] LABS: BASOPHIL % 0.7 % (0-2); PLATELET COUNT 209 x10^3mcL (130-400)
[2017-05-12 07:34] LABS: RED CELL DISTRIBUTION WIDTH 18.4 % (11.5-14.5)
[2017-05-12 07:37] LABS: CALCIUM 8.3 mg/dL (8.5-10.1); CARBON DIOXIDE 28.3 mmol/L (21-32); CHLORIDE SERUM 105 mmol/L (98-107); CREATININE SERUM 0.9 mg/dL (0.6-1.0); GFR1 > 60 mL/min; GLUCOSE SERUM 95 mg/dL (74-106); POTASSIUM SERUM 3.9 mmol/L (3.5-5.1); SODIUM SERUM 139 mmol/L (136-145)
[2017-05-12 08:38] VITALS: BP 109/50
[2017-05-12] MEDS ORDERED: OSCD PO (13:07)
[2017-05-12] MEDS ORDERED: CLEOCIN HCL300 MG PO (13:12)
[2017-05-12] MEDS ORDERED: KEFLEX500 M1 PO (13:16)
[2017-05-12] MEDS ORDERED: LAC PO (13:50)
[2017-05-12 13:54] VITALS: BP 109/50
== END 2017-05-12 14:53 | disposition home or self-care (01) | DRG 720 ==
LOC: ED 21:17 → DU 05-09 03:01 → MU 05-09 03:01 → DU 05-09 04:16 → MU 05-10 06:49
PROVIDERS: Emergency Medicine; ADMIT Family Medicine
DX: A41.9 Sepsis, unspecified organism (principal); Z68.42 Body mass index [BMI] 45.0-49.9, adult; I10 Essential (primary) hypertension; L03.115 Cellulitis of right lower limb; N39.0 Urinary tract infection, site not specified; E87.6 Hypokalemia; E83.42 Hypomagnesemia; E83.39 Other disorders of phosphorus metabolism; R31.9 Hematuria, unspecified; M10.9 Gout, unspecified; E66.01 Morbid (severe) obesity due to excess calories; I73.9 Peripheral vascular disease, unspecified
CPT/HCPCS: 82962; 83880; 90658; 97110-GP; 97530-GP; J2270; J2405; J2543; J3475; J3480; J3490; J7030; J8597; Q0092

== ENCOUNTER 2017-08-07 19:56 | Inpatient (IN) | payer OTHER ==
[~2017-08-07] VITALS: Ht 170.2 cm; Wt 134.7 kg
[~2017-08-07 19:56] MED LIST changes: +CLEOCIN HCL300 MG PO; +KEFLEX500 M1 PO; +OSCD PO
[2017-08-07 21:22] LABS: PLATELET COUNT 229 x10^3mcL (130-400); RED CELL DISTRIBUTION WIDTH 19.8 % (11.5-14.5)
[2017-08-07 21:23] LABS: BASOPHIL % 0.6 % (0-2)
[2017-08-07 21:26] LABS: microscopic required? YES; urine erythrocyte TRACE (NEGATIVE)
[2017-08-07 21:27] LABS: CALCIUM 8.1 mg/dL (8.5-10.1); CARBON DIOXIDE 26.7 mmol/L (21-32); CHLORIDE SERUM 106 mmol/L (98-107); GFR1 > 60 mL/min; GLUCOSE SERUM 102 mg/dL (74-106); POTASSIUM SERUM 3.9 mmol/L (3.5-5.1); SODIUM SERUM 143 mmol/L (136-145)
[2017-08-07 21:32] LABS: ALKALINE PHOSPHATASE 92 U/L (46-116); ALT/SGPT 20 U/L (14-59); AST/SGOT 21 U/L (15-37); BILIRUBIN TOTAL 0.2 mg/dL (0.20-1.00); TOTAL PROTEIN, SERUM 7.8 g/dL (6.4-8.2)
[2017-08-07 21:33] LABS: ALBUMIN 3.3 g/dL (3.4-5.0)
[2017-08-07 23:07] VITALS: BP 135/65
[2017-08-07 23:11] VITALS: Ht 170.2 cm; Wt 134.7 kg
[2017-08-07 23:20] LABS: MAGNESIUM 1.9 mg/dL (1.8-2.4); PHOSPHOROUS 3.1 mg/dL (2.5-4.9)
[2017-08-07 23:24] LABS: CHOLESTEROL/HDL RATIO 2.5
[2017-08-07 23:53] LABS: FREE T4 1.18 ng/dL (0.76-1.46); FREE THYROXINE INDEX 2.6 ug/dL (1.4-4.5); T4(THYROXINE) 8.7 ug/dL (4.7-13.3)
[2017-08-08 00:33] VITALS: BP 135/65
[2017-08-08 06:29] VITALS: BP 152/63
[2017-08-08 10:25] VITALS: BP 130/63
[2017-08-08] MEDS ORDERED: LIPI10 PO (12:02)
[2017-08-08] MEDS ORDERED: ASPIRIN ADULT L81 M5 PO (12:03)
[2017-08-08] MEDS ORDERED: GLU500 PO (12:05)
[2017-08-08 13:44] LABS: T3 TOTAL 1.12 ng/mL
[2017-08-08 18:13] VITALS: BP 139/53
[2017-08-08 21:40] VITALS: BP 129/72
[2017-08-09 04:20] VITALS: BP 136/65
[2017-08-09 05:15] VITALS: BP 136/65
[2017-08-09 07:44] LABS: BASOPHIL % 1.5 % (0-2); PLATELET COUNT 200 x10^3mcL (130-400)
[2017-08-09 07:51] LABS: RED CELL DISTRIBUTION WIDTH 19.8 % (11.5-14.5)
[2017-08-09 07:55] LABS: CALCIUM 8.2 mg/dL (8.5-10.1); CARBON DIOXIDE 25.4 mmol/L (21-32); CHLORIDE SERUM 108 mmol/L (98-107); CREATININE SERUM 0.8 mg/dL (0.6-1.0); GFR1 > 60 mL/min; GLUCOSE SERUM 118 mg/dL (74-106); POTASSIUM SERUM 3.8 mmol/L (3.5-5.1); SODIUM SERUM 142 mmol/L (136-145)
[2017-08-09 10:08] VITALS: BP 145/58
[2017-08-09] MEDS ORDERED: ROBAXIN-750750 MG PO (12:39)
[2017-08-09 13:24] VITALS: BP 145/58
[2017-08-09 14:27] VITALS: BP 149/70
== END 2017-08-09 15:22 | disposition home or self-care (01) | DRG 140 ==
LOC: ED 19:56 → DU 22:14
PROVIDERS: Emergency Medicine; Family Medicine
DX: J44.1 Chronic obstructive pulmonary disease with (acute) exacerbation (principal); E44.0 Moderate protein-calorie malnutrition; E11.65 Type 2 diabetes mellitus with hyperglycemia; E66.2 Morbid (severe) obesity with alveolar hypoventilation; Z68.42 Body mass index [BMI] 45.0-49.9, adult; K21.9 Gastro-esophageal reflux disease without esophagitis; I89.0 Lymphedema, not elsewhere classified; M54.9 Dorsalgia, unspecified; Z88.6 Allergy status to analgesic agent; Z90.49 Acquired absence of other specified parts of digestive tract; Z82.49 Family history of ischemic heart disease and other diseases of the circulatory system; Z80.3 Family history of malignant neoplasm of breast; Z82.3 Family history of stroke
CPT/HCPCS: 82962; 83880; 84439; 87804; 94150; J2930; J7030; J7613; J7620; Q0092

== ENCOUNTER 2017-09-03 21:31 | Emergency (ER) | payer OTHER ==
[~2017-09-03] VITALS: Ht 170.2 cm; Wt 145.1 kg
[~2017-09-03 21:31] MED LIST changes: +ASPIRIN ADULT L81 M5 PO; +GLU500 PO; +LIPI10 PO
[2017-09-03 21:39] VITALS: Ht 170.2 cm; Wt 145.1 kg
[2017-09-04 00:57] VITALS: BP 156/82
== END 2017-09-04 00:57 | disposition home or self-care (01) ==
LOC: ED 21:31
DX: S56.811A Strain of other muscles, fascia and tendons at forearm level, right arm, initial encounter (principal); I10 Essential (primary) hypertension; M10.9 Gout, unspecified; Z88.8 Allergy status to other drugs, medicaments and biological substances; X58.XXXA Exposure to other specified factors, initial encounter; Y93.89 Activity, other specified; Y99.8 Other external cause status; Y92.89 Other specified places as the place of occurrence of the external cause

== ENCOUNTER 2017-10-04 17:03 | Emergency (ER) | payer OTHER ==
[~2017-10-04] VITALS: Ht 170.2 cm; Wt 144.2 kg
[2017-10-04 18:35] LABS: BASOPHIL % 0.1 % (0-2); CALCIUM 8.8 mg/dL (8.5-10.1); CARBON DIOXIDE 26.2 mmol/L (21-32); CHLORIDE SERUM 107 mmol/L (98-107); CREATININE SERUM 0.9 mg/dL (0.6-1.0); GFR1 > 60 mL/min; GLUCOSE SERUM 104 mg/dL (74-106); PLATELET COUNT 276 x10^3mcL (130-400); POTASSIUM SERUM 3.8 mmol/L (3.5-5.1); SODIUM SERUM 142 mmol/L (136-145)
[2017-10-04 18:37] LABS: RED CELL DISTRIBUTION WIDTH 17.1 % (11.5-14.5)
[2017-10-04 18:39] LABS: ALKALINE PHOSPHATASE 104 U/L (46-116); ALT/SGPT 20 U/L (14-59); AST/SGOT 16 U/L (15-37); BILIRUBIN TOTAL 0.3 mg/dL (0.20-1.00); LIPASE 54 IU/L (73-393); TOTAL PROTEIN, SERUM 7.4 g/dL (6.4-8.2)
[2017-10-04 18:41] LABS: ALBUMIN 3.2 g/dL (3.4-5.0)
[2017-10-04 19:02] VITALS: BP 139/85
== END 2017-10-04 19:02 | disposition home or self-care (01) ==
LOC: ED 17:03
PROVIDERS: Emergency Medicine
DX: K29.70 Gastritis, unspecified, without bleeding (principal); I10 Essential (primary) hypertension; Z90.49 Acquired absence of other specified parts of digestive tract; Z88.8 Allergy status to other drugs, medicaments and biological substances
CPT/HCPCS: 36415; Q0162

== ENCOUNTER 2018-01-27 12:36 | Emergency (ER) | payer OTHER ==
[~2018-01-27] VITALS: Ht 170.2 cm; Wt 147.4 kg
[2018-01-27 12:45] VITALS: Ht 170.2 cm; Wt 147.4 kg
[2018-01-27 13:48] LABS: CARBON DIOXIDE 26.6 mmol/L (21-32); CHLORIDE SERUM 107 mmol/L (98-107); CREATININE SERUM 0.8 mg/dL (0.6-1.0); GFR1 > 60 mL/min; GLUCOSE SERUM 100 mg/dL (74-106); POTASSIUM SERUM 3.7 mmol/L (3.5-5.1); SODIUM SERUM 142 mmol/L (136-145)
[2018-01-27 13:53] LABS: BASOPHIL % 0.9 % (0-2); PLATELET COUNT 247 x10^3mcL (130-400)
[2018-01-27 13:57] LABS: ALBUMIN 3.3 g/dL (3.4-5.0); ALKALINE PHOSPHATASE 100 U/L (46-116); ALT/SGPT 17 U/L (14-59); AMYLASE 37 U/L (25-115); AST/SGOT 15 U/L (15-37); BILIRUBIN TOTAL 0.45 mg/dL (0.20-1.00); LIPASE 73 IU/L (73-393); TOTAL PROTEIN, SERUM 7.6 g/dL (6.4-8.2)
[2018-01-27 14:19] LABS: RED CELL DISTRIBUTION WIDTH 16.5 % (11.5-14.5)
[2018-01-27 15:08] VITALS: BP 131/61
== END 2018-01-27 15:08 | disposition home or self-care (01) ==
LOC: ED 12:36
PROVIDERS: Emergency Medicine
DX: T62.8X1A Toxic effect of other specified noxious substances eaten as food, accidental (unintentional), initial encounter (principal); R11.2 Nausea with vomiting, unspecified; R19.7 Diarrhea, unspecified; E78.00 Pure hypercholesterolemia, unspecified; Z88.8 Allergy status to other drugs, medicaments and biological substances; Y92.89 Other specified places as the place of occurrence of the external cause
CPT/HCPCS: 83880; C9113; J2405; J2765; J7030

== ENCOUNTER 2018-05-16 00:32 | Emergency (ER) | payer OTHER ==
[~2018-05-16] VITALS: Ht 170.2 cm; Wt 141.5 kg
[2018-05-16 01:24] VITALS: Ht 170.2 cm; Wt 141.5 kg
[2018-05-16 02:20] LABS: BASOPHIL % 1.2 % (0-2); PLATELET COUNT 224 x10^3mcL (130-400)
[2018-05-16 02:21] LABS: RED CELL DISTRIBUTION WIDTH 15.9 % (11.5-14.5)
[2018-05-16 03:03] VITALS: BP 110/48
== END 2018-05-16 03:03 | disposition home or self-care (01) ==
LOC: ED 00:32
PROVIDERS: Emergency Medicine
DX: R04.0 Epistaxis (principal); I10 Essential (primary) hypertension; E78.00 Pure hypercholesterolemia, unspecified; Z86.2 Personal history of diseases of the blood and blood-forming organs and certain disorders involving the immune mechanism; Z88.8 Allergy status to other drugs, medicaments and biological substances
CPT/HCPCS: 36415

== ENCOUNTER 2018-05-17 19:01 | Emergency (ER) | payer OTHER ==
[~2018-05-17] VITALS: Ht 167.6 cm; Wt 146.1 kg
[2018-05-17 19:15] VITALS: Ht 167.6 cm; Wt 146.1 kg
[2018-05-17 20:19] VITALS: BP 128/87
== END 2018-05-17 20:19 | disposition home or self-care (01) ==
LOC: ED 19:01
DX: Z48.01 Encounter for change or removal of surgical wound dressing (principal); I10 Essential (primary) hypertension; E78.00 Pure hypercholesterolemia, unspecified; Z88.6 Allergy status to analgesic agent

== ENCOUNTER 2018-05-18 20:55 | Emergency (ER) | payer OTHER ==
[~2018-05-18] VITALS: Ht 170.2 cm; Wt 146.1 kg
[2018-05-18 21:18] VITALS: Ht 170.2 cm; Wt 146.1 kg
[2018-05-18 21:59] VITALS: BP 138/72
== END 2018-05-18 22:16 | disposition home or self-care (01) ==
LOC: ED 20:55
DX: R04.0 Epistaxis (principal); I10 Essential (primary) hypertension; M10.9 Gout, unspecified; Z86.2 Personal history of diseases of the blood and blood-forming organs and certain disorders involving the immune mechanism; E78.00 Pure hypercholesterolemia, unspecified; Z48.00 Encounter for change or removal of nonsurgical wound dressing; Z88.6 Allergy status to analgesic agent

== ENCOUNTER 2018-08-24 17:41 | Emergency (ER) | payer OTHER ==
[~2018-08-24] VITALS: Ht 170.2 cm; Wt 146.1 kg
[2018-08-24 17:55] VITALS: Ht 170.2 cm; Wt 146.1 kg
[2018-08-24 20:39] LABS: BASOPHIL % 3.5 % (0-2); PLATELET COUNT 238 x10^3mcL (130-400); RED CELL DISTRIBUTION WIDTH 14.8 % (11.5-14.5)
[2018-08-24 20:55] LABS: CALCIUM 8.7 mg/dL (8.5-10.1); CARBON DIOXIDE 30.2 mmol/L (21-32); CHLORIDE SERUM 107 mmol/L (98-107); CREATININE SERUM 0.9 mg/dL (0.6-1.0); GFR1 > 60 mL/min; GLUCOSE SERUM 101 mg/dL (74-106); POTASSIUM SERUM 3.9 mmol/L (3.5-5.1); SODIUM SERUM 146 mmol/L (136-145)
[2018-08-24 21:01] LABS: ALKALINE PHOSPHATASE 96 U/L (46-116); ALT/SGPT 20 U/L (14-59); AMYLASE 49 U/L (25-115); AST/SGOT 18 U/L (15-37); BILIRUBIN TOTAL 0.22 mg/dL (0.20-1.00); HDL CHOLESTEROL 52 mg/dL (40-60); LIPASE 73 IU/L (73-393)
[2018-08-24 21:04] LABS: ALBUMIN 3.2 g/dL (3.4-5.0); CHOLESTEROL 100 mg/dL (<200)
[2018-08-24 22:22] VITALS: BP 123/71
== END 2018-08-24 22:33 | disposition home or self-care (01) ==
LOC: ED 17:41
PROVIDERS: Emergency Medicine
DX: H66.92 Otitis media, unspecified, left ear (principal); H61.21 Impacted cerumen, right ear; H10.9 Unspecified conjunctivitis; R07.89 Other chest pain; M54.9 Dorsalgia, unspecified; E46 Unspecified protein-calorie malnutrition; E66.01 Morbid (severe) obesity due to excess calories; I89.0 Lymphedema, not elsewhere classified; E78.00 Pure hypercholesterolemia, unspecified; I10 Essential (primary) hypertension; J44.9 Chronic obstructive pulmonary disease, unspecified; F41.9 Anxiety disorder, unspecified; M10.9 Gout, unspecified; Z86.2 Personal history of diseases of the blood and blood-forming organs and certain disorders involving the immune mechanism; Z68.43 Body mass index [BMI] 50.0-59.9, adult; Z88.6 Allergy status to analgesic agent
CPT/HCPCS: 36415; 83880

== ENCOUNTER 2018-10-05 16:43 | Emergency (ER) | payer OTHER ==
[~2018-10-05] VITALS: Ht 170.2 cm; Wt 145.1 kg
[2018-10-05 17:16] VITALS: Ht 170.2 cm; Wt 145.1 kg
[2018-10-05 19:03] LABS: CALCIUM 8.7 mg/dL (8.5-10.1); CARBON DIOXIDE 28.8 mmol/L (21-32); CHLORIDE SERUM 106 mmol/L (98-107); CREATININE SERUM 0.7 mg/dL (0.6-1.0); GFR1 > 60 mL/min; GLUCOSE SERUM 92 mg/dL (74-106); POTASSIUM SERUM 4.3 mmol/L (3.5-5.1); SODIUM SERUM 143 mmol/L (136-145)
[2018-10-05 19:45] VITALS: BP 127/70
== END 2018-10-05 19:45 | disposition home or self-care (01) ==
LOC: ED 16:43
PROVIDERS: Emergency Medicine
DX: K52.9 Noninfective gastroenteritis and colitis, unspecified (principal); I10 Essential (primary) hypertension; E11.9 Type 2 diabetes mellitus without complications; J44.9 Chronic obstructive pulmonary disease, unspecified; E78.00 Pure hypercholesterolemia, unspecified; F41.9 Anxiety disorder, unspecified
CPT/HCPCS: J3010